=== PATIENT | male | born 1970 | race Caucasian/White ===

== ENCOUNTER 2016-10-21 22:23 | Emergency (ER) | payer OTHER ==
[2016-10-22 02:36] VITALS: BP 142/82
== END 2016-10-22 02:36 | disposition home or self-care (01) ==
LOC: ED 22:23
DX: S01.112A Laceration without foreign body of left eyelid and periocular area, initial encounter (principal); G80.9 Cerebral palsy, unspecified; W50.0XXA Accidental hit or strike by another person, initial encounter; Y93.01 Activity, walking, marching and hiking; Y99.8 Other external cause status; Y92.89 Other specified places as the place of occurrence of the external cause
CPT/HCPCS: 90715; J2001

== ENCOUNTER 2016-10-26 14:10 | Emergency (ER) | payer OTHER ==
[2016-10-26 14:27] VITALS: BP 168/98
== END 2016-10-26 15:20 | disposition home or self-care (01) ==
LOC: ED 14:10
DX: S01.81XD Laceration without foreign body of other part of head, subsequent encounter (principal); X58.XXXD Exposure to other specified factors, subsequent encounter; Y99.8 Other external cause status; Y92.89 Other specified places as the place of occurrence of the external cause

== ENCOUNTER 2019-12-29 01:41 | Emergency (ER) | payer OTHER ==
[~2019-12-29] VITALS: Ht 167.6 cm; Wt 99.8 kg
[2019-12-29 01:55] VITALS: BP 153/93; Ht 167.6 cm; Wt 99.8 kg
== END 2019-12-29 02:34 | disposition other institution (70) ==
LOC: ED 01:41
DX: Z02.89 Encounter for other administrative examinations (principal)